=== PATIENT | female | born 1980 | race Caucasian/White ===

== ENCOUNTER 2023-05-20 12:20 | Emergency (ER) | payer MEDICAID, SELFPAY ==
[2023-05-20 12:28] VITALS: BP 128/79; PULSE 87; RESP 15; TEMP 36.6; O2SAT 99; BMI 39.9
--- NOTE | 2023-05-20 12:29 | XR_ITS ---
WS: [id number] Left knee, 4 views, 05/20/2023 Clinical Data: left knee fall injury with pain Comparison: None. Findings: No fractures or dislocations are seen. There is medial joint compartment narrowing with spurring of t he medial femoral condyle and medial tibial plateau. There are calcifications at adjacent to the late ral tibial plateau which are probably within the lateral collateral ligament. There is spurring of th e lateral femoral condyle. There is spurring of the posterior patella. The patella is intact. The sof t tissues are unremarkable. XR/XR knee LT 3V* [id number] Impression: 1. Negative for fracture or dislocation. 2. Minimal osteoarthritis of all the compartments of the left knee. Kellgren-Delio Classification: grade 2 (minimal): definite osteophytes and p ossible joint space narrowing
--- NOTE | 2023-05-20 14:16 | ED_ITS ---
HPI - Extremity Problem General: Chief complaint: Extremity Injury, Lower Stated complaint: fall/inj LT knee Time Seen by Provider: 05/20/23 12:33 History of Present Illness: Patient is a 42-year-old female comes to the ED with left knee pain. Patient says she has some chronic right knee issues and uses a cane to help with ambulation. Today before coming to the ED she was walking and states that she had a twisting type injury to her left knee. She described that her upper part of her body was going [address] and her left lower leg was going in a different direction. She endorses now having 9 out of 10 pain in her left knee. She states that her knee feels unstable. Pain worsens with weightbearing and flexion of left knee. Denies any other injuries. Associated symptoms: Deny chest pain, fever(s) or rash Review of Systems Const: Denies: fever(s), chills or fatigue Eyes: Denies: change in vision or eye discomfort ENMT: Denies: throat pain, odynophagia, nasal discharge or nasal congestion Card: Denies: chest pain, palpitations, edema, swelling of feet/ankles, dyspnea on exertion or orthopnea Resp: Denies: dyspnea, productive cough or non-productive cough GI: Denies: abdominal pain, nausea, vomiting, diarrhea, constipation or hematochezia : Denies: flank pain, dysuria or hematuria Musc: Reports: extremity pain (Left knee), extremity swelling (Left knee) and limited range of motion (Left knee); Denies: neck pain or back pain Skin/Breast: Denies: rash or new lesions Neuro: Denies: headache(s), numbness in extremities or weakness in extremities PFS ED PFSH: Medical History (Updated 05/21/23 @ 09:39 by MYLES Rae) No pertinent family history Surgical History (Updated 05/21/23 @ 09:39 by MYLES Rae) No pertinent past surgical history Physical Exam Const: COMMON NORMALS: no acute distress, patient oriented x3 and alert HENMT: COMMON NORMALS: normocephalic HEAD & SCALP: normocephalic MOUTH: Normal oral and palatal mucosa present THROAT: posterior oropharynx normal and uvula midline Neck/C-Spine: COMMON NORMALS: supple GENERAL: Yes normal visual inspection Resp: COMMON NORMALS: normal respiratory effort, No retractions, No use of accessory muscles and clear to auscultation bilaterally AUSCULTATION: clear to auscultation bilaterally Cardio: COMMON NORMALS: regular rate, regular rhythm, S1 normal heart sound present, S2 normal heart sound present, No gallops present (Cardio), No clicks present (Cardio), No murmurs present (Cardio) and Peripheral pulses 2+ throughout RATE: regular rate RHYTHM: regular rhythm HEART SOUNDS: S1 normal heart sound present and S2 normal heart sound present PERIPHERAL PULSES: Peripheral pulses 2+ throughout GI: COMMON NORMALS: Normal to inspection, nondistended, normoactive bowel sounds present, Soft to palpation, non-tender and no masses PALPATION: Yes Soft to palpation : COMMON NORMALS: Yes no CVA tenderness BLADDER/KIDNEY EXAM: Yes no CVA tenderness Back/Pelvis: COMMON NORMALS: no CVA tenderness Extremity: NARRATIVE EXTREMITY EXAM: Left knee?no visible deformity noted. Mild swelling seen. Tenderness over patellar region of knee. Limited range of motion?flexion of the knee due to pain. Neurovascular intact distally. GENERAL: Yes normal exam except as noted Neuro: COMMON NORMALS: patient oriented x3 SENSORIUM/ORIENTATION: Yes alert GAIT: Yes Normal gait present Skin: GENERAL SKIN EXAM: dry skin Course Vital Signs: Vital signs: Vital Signs Temperature 97.9 F 05/20/23 14:50 Pulse Rate 87 05/20/23 14:50 Respiratory Rate 15 05/20/23 14:50 Blood Pressure 128/79 05/20/23 14:50 Pulse Oximetry 99 05/20/23 14:50 Oxygen Delivery Me thod Room Air 05/20/23 12:28 MDM - Extremity (Nontraumatic) Medical Decision Making Patient is a 42-year-old female comes to the ED with left knee pain. Patient says she has some chronic right knee issues and uses a cane to help with ambulation. Today before coming to the ED she was walking and states that she had a twisting type injury to her left knee. She described that her upper part of her body was going [address] and her left lower leg was going in a different direction. She endorses now having 9 out of 10 pain in her left knee. She states that her knee feels unstable. Pain worsens with weightbearing and flexion of left knee. Denies any other injuries. Left knee?no visible deformity noted. Mild swelling seen. Tenderness over patellar region of knee. Limited range of motion?flexion of the knee due to pain. Neurovascular intact distally. X-ray of left knee showed no acute fractures or dislocations. There is minimal osteoarthritis of all compartments of the left knee. Patient was diagnosed with left knee pain and was stable for discharge home. I placed an order with case management for patient be referred to Ortho for follow-up. Patient was put in a knee immobilizer and discharged home with crutches. Return to ED precautions given. Patient understood and agreed with plan. Lab Data Radiology Impressions Knee X-Ray 05/20/23 12:29 Impression: 1. Negative for fracture or dislocation. 2. Minimal osteoarthritis of all the compartments of the left knee. Kellgren-Delio Classification: grade 2 (minimal): definite osteophytes and possible joint space narrowing Discharge Plan Discharge Patient Disposition: Home Clinical Impression: Knee pain, left Qualifiers: Chronicity: acute Qualified Code(s): M25.562 - Pain in left knee Condition: Stable Prescriptions: New ibuprofen 800 mg tablet 800 mg PO Q8H PRN (Reason: pain) Qty: 30 0RF No Action fluticasone propionate 50 mcg/actuation spray,suspension 2 spray intranasal DAILY PRN (Reason: allergy symptoms) Qty: 16 0RF Rx Instructions: administer into each nostril azithromycin 250 mg tablet See Rx Instructions PO .COMPLEX Qty: 6 0RF Rx Instructions: take 500 mg today (day 1), then 250 mg for 4 days (days 2-5) PO promethazine-DM 6.25-15 mg/5 mL syrup 10 ml PO Q6H PRN (Reason: cough) Qty: 118 0RF Discharge Orders: Discharge ED (Routine); Ordered 05/20/23 Ordered By: Andrews Campos Referrals: Levon Hoffman MD [Primary Care Provider] - Discharge Diet: Regular Discharge Activity: Limit activity as instructed and Use walker/crutches as instructed Patient Instructions: Knee Sprain (ED), Knee Pain (ED) Activity Restrictions/Additional Instructions: Follow-up with medical provider as directed. Case management should be contacted in the next several days to set up an appointment with Ortho for follow-up on knee pain. Wear knee immobilizer and limit weightbearing for the next 2 to 3 days and use crutches to help with ambulation. You can slowly advance some weightbearing on the left leg as tolerated. Rest, ice and elevate left knee. Take medications as prescribed. Return to the ER or your medical provider if condition worsens. Please read and understand discharge instructions. Thank you for choosing [facility] for your healthcare needs today. Please realize this is an emergency room and that we are providing you with a medical screening exam and this may not be complete and all inclusive of all the testing and or work up that you may need to determine your ailment or severity of your illness. It is very important that you follow up as instructed or that you return to the Emergency Department should you have concerns or if your condition changes or worsens in any way. Coding Level of Care Code ED Certified Physician Assistant for Alex Stoner
[2023-05-20] MEDS: HYDROcodone-acetaminophen 7.5-325 mg Tablet 1 TAB PO (14:35)
[2023-05-20] MEDS: ketorolac 60 mg/2 mL INJ IM (14:35)
[2023-05-20 14:50] VITALS: BP 128/79; PULSE 87; RESP 15; TEMP 36.6; O2SAT 99
--- NOTE | 2023-05-23 08:16 | DCPLANNER ---
Addendum entered by Steph Leal 06/17/23 10:50: Patient did attend appointment Addendum entered by Steph Leal 05/25/23 14:14: Patient has a follow up appointment scheduled for Thursday, June 15, 2023 at 11:[address] Moyer at ortho. Original Note: manager salt had message to schedule a follow up appointment for patient with ortho. manager salt sent patients information to the front office staff at ortho. Patients information will be printed and reviewed. Clinic will call patient with appointment information.
== END 2023-05-20 15:01 | disposition home or self-care (01) ==
PROVIDERS: Emergency Provider Physician Assistant; PCP Family Medicine
DX: M25.562 Pain in left knee (principal); M17.12 Unilateral primary osteoarthritis, left knee
CPT/HCPCS: 29530; 73562; 96372; 99283; E0114; J1885

== ENCOUNTER → 2023-06-15 10:47 | Outpatient (BNVA) | payer MEDICAID, SELFPAY | PROVIDERS: PCP Family Medicine; Referring Provider Dermatology; Visit Provider Specialist | DX: M25.561 Pain in right knee (principal); M25.562 Pain in left knee; G89.29 Other chronic pain; M17.12 Unilateral primary osteoarthritis, left knee | CPT/HCPCS: 73560; 73565 ==

== ENCOUNTER 2023-07-08 13:35 | Outpatient (CLI) | payer MEDICAID, SELFPAY ==
--- NOTE | 2023-07-08 13:45 | MR_ITS ---
WS: [id number] MRI LEFT KNEE NONCONTRAST TECHNIQUE: Axial PD, coronal PD fat sat, coronal PD, sagittal PD, and sagittal PD fat-sat images obta ined. CLINICAL INFORMATION: left knee pain COMPARISON: None. FINDINGS: Distal quadriceps and patella tendons are intact. Hypertrophic changes along the joint line. Hypertro phic patella. Normal ACL and PCL. Tiny suprapatellar effusion. Moderate degenerative narrowing patell ofemoral articulation. Mild to moderate narrowing medial and lateral joint compartments. Tear involving the anterior horn lateral meniscus extending to the meniscal root. Peripheral extrusio n of the lateral meniscus. Normal medial meniscus. Medial and lateral collateral ligaments appear int act. Normal popliteus. Normal fibula head. Advanced chondromalacia patella advanced for a patient thi s age. Lateral subluxation of the patella within the trochlear groove. Recommend correlation for woods llar instability. Medial and lateral patellar retinaculum appear intact. IMPRESSION: 1. ACL and PCL appear intact. 2. Tear involving the anterior horn lateral meniscus extending to the articular surface with narrowi ng of the lateral joint compartment. Peripheral extrusion of the lateral meniscus. 3. Medial and lateral collateral ligaments appear intact. 4. Advanced chondromalacia patella with slight lateral subluxation and hypertrophic changes. Recomme nd correlation for patellar instability. 5. Small suprapatellar effusion. 6. No other acute findings. Outbridge grading: grade IV: full-thickness cartilage loss with underlying bone reactive changes
== END 2023-07-08 13:36 | disposition home or self-care (01) ==
PROVIDERS: PCP Family Medicine; Visit Provider Specialist
DX: M17.12 Unilateral primary osteoarthritis, left knee (principal); S83.282A Other tear of lateral meniscus, current injury, left knee, initial encounter; X58.XXXA Exposure to other specified factors, initial encounter; M22.42 Chondromalacia patellae, left knee; M25.462 Effusion, left knee
CPT/HCPCS: 73721

== ENCOUNTER → 2023-09-23 08:09 | Day surgery (SDC) | payer MEDICAID, SELFPAY ==
[2023-09-23] VITALS (8 sets, daily range): BP systolic 122–152; BP diastolic 71–103; PULSE 75–88; RESP 14–18; TEMP 35.8–36.3; O2SAT 94–99; BMI 38.7
--- NOTE | 2023-09-23 08:30 | W.PM.OPSUD ---
Surgery/Procedure H&P Update DATE OF PROCEDURE: September 23, 2023 DATE H&P PERFORMED: 09/13/23 H&P UPDATE INFORMATION: I have reviewed H&P completed within last 30 days, I have examined patient prior to procedure, No changes to prior documentation and H&P is in [facility] EMR on date indicated PLANNED PROCEDURE: Operation Date: 09/23/23 09:50 Proposed Procedures p Knee Arthroscopy Knee Arthroscopy w/ Lateral Menisectomy: meniscectomy and debridement(Left) - Priscilla Moyer MD Related Problem List Diagnoses (1) Primary osteoarthritis of left knee: (2) Tear of lateral meniscus of left knee: Qualifiers: Tear current or old: current Encounter type: subsequent encounter Meniscus tear of knee type: peripheral Qualified Code(s): S83.262D - Peripheral tear of lateral meniscus, current injury, left knee, subsequent encounter
[2023-09-23] MEDS: sodium chloride 0.9% 1,000 ML 30 ML IV (08:45)
[2023-09-23] MEDS: CELEcoxib 200 mg Capsule 400 MG PO (08:49)
--- NOTE | 2023-09-23 08:50 | ANES.PREANE2 ---
Pre-Anesthetic Assessment Height/Weight: Height 1.65 m Temp Pulse Resp BP Pulse Ox O2 Del Method 97.3 F L 88 16 152/103 99 Room Air 09/23/23 08:33 09/23/23 08:33 09/23/23 08:33 09/23/23 08:33 09/23/23 08:33 09/23/23 08:35 Operation Date: 09/23/23 09:50 Proposed Procedures p Knee Arthroscopy Knee Arthroscopy w/ Lateral Menisectomy: meniscectomy and debridement(Left) - Priscilla Moyer MD Familial anesthetic complications: None Was Beta Carina taken within 24 hours: N/A Was Clonidine taken within 24 hours: N/A Last intake: Intake Last Liquid Date 09/22/23 Last Liquid Time 19:00 Last Solid Date 09/22/23 Last Solid Time 18:00 Social Tobacco and No alcohol .5 pack(s) per day Exam alert, oriented x 3, clear to auscultation bilaterally and regular rate & rhythm Airway Submandibular: within normal limits Cervical ROM: within normal limits Mallampati: Class II Dentition: full History/ROS No significant history except as noted and No significant complaints Pulmonary None reported CV/HEM None reported None reported Hepatic None reported GI None reported Metabolic Morbid Obesity [facility] [place] [place] None reported Neuropsych Anxiety Anesthetic Plan ASA status: 2 Anesthesia: Anesthesia Evaluation, General and MAC Risk of > 500 ml blood loss (7ml/kg in children): No Medications/Allergies Home Medications Medication Instructions Recorded Confirmed Last Taken Type meloxicam 15 mg tablet 15 mg PO DAILY #30 tabs 06/15/23 09/22/23 09/15/23 Rx HINGED KNEE BRACE #1 ea 07/25/23 09/13/23 Unknown Rx Allergies Allergy/AdvReac Type Severity Reaction Status Date / Time Penicillins Allergy ALGY-Rash Verified 09/22/23 12:25 Current Medications Generic Name Dose Route Start Last Admin Trade Name Freq PRN Reason Stop Dose Admin Sodium Chloride 1,000 mls @ 30 mls/hr 09/23/23 08:15 09/23/23 08:45 Sodium Chloride 0.9% IV 09/24/23 08:14 30 mls/hr .Q24H TERESA Administration PFSH Anesthesia Medical History No pertinent family history Surgical History No pertinent past surgical history Data Anesthesia Cardiac Studies: No Data to Display
[2023-09-23 08:52] LABS: OR HCG Qualitative Urine Negative (Negative)
[2023-09-23] MEDS: clindamycin 600 MG/50 ML PREMIX 100 MG IV (09:01)
[2023-09-23] MEDS: morphine 4 mg/mL SDV 1 mL 8 MG XX (09:58)
[2023-09-23] MEDS: ROPivacaine 0.5% SDV 30 mL 150 MG INJECTION (09:58)
--- NOTE | 2023-09-23 10:44 | P.OP_ITS ---
Operative Report Date of procedure: September 23, 2023 Pre-op diagnosis: Left knee degenerative osteoarthritis and lateral meniscal tear Post-op diagnosis: Left knee degenerative osteoarthritis with medial and lateral meniscal tears Post-op findings: Anterior horn tear of the lateral meniscus and also in rim tearing of the medial meniscus with degenerative osteoarthritis in both the medial and lateral compartments as well as patellofemoral Procedure done: Left knee arthroscopy with partial medial and lateral meniscectomies, debrid ement of osteoarthritis with chondroplasty medial, lateral, and patellofemoral compartments Surgeon: Priscilla Moyer MD [employer] Developer: None Anesthesia: General (Per LMA, ASA 2) Estimated blood loss (mL): 2 Tourniquet time (min): 42 (At 250 mmHg) IV fluids (mL): 800 Urine output (mL): 0 (No Montoya) Complications: None Findings: Near complete loss of the anterior third of the lateral meniscus. Inner rim tearing and degenerative tearing of the medial meniscus. Chondromalacia of the medial femoral condyle and lateral tibial plateau as well as patellofemoral joint Condition: stable Disposition: PACU (Then return to same-day surgery for discharge to home) Brief History: This 42-year-old woman presented to the office complaining of left knee pain. At times, she complained of pain as high as 9 of 10. She had had cortisone injections, and she stated these did not help her. Additionally, she had tried other conservative measures such as anti-inflammatories. She complained of symptoms such as locking, popping, and giving way along with catching of the knee. The patient had an MRI which demonstrated a lateral meniscal tear involving primarily the anterior horn. The patient wished to proceed with arthroscopic intervention and debridement. Risks and complications were discussed with her. Consents were signed and questions were answered in the office. Procedure: Patient was brought to the operating theater and after undergoing adequate general anesthesia per LMA, ASA 2, the patient's left lower extremity was prepped and draped in usual fashion utilizing DuraPrep. A tourniquet was placed high on the leg prior to prepping and draping. The tourniquet was elevated prior to commencement of the surgical procedure to 250 mmHg. Total tourniquet time was 42 minutes. Elevation followed prepping and exsanguination. Prior to commencement of the surgical procedure, a surgical pause was performed. At the time of the surgical pause, we identified the site and side of surgery. We also confirm the patient's identity and appropriate and timely administration of preoperative antibiotics, clindamycin 600 mg. Preoperative surgical markings were also visualized at this time. Standard arthroscopic portals were utilized including superolateral, inferomedial, and inferolateral portals. The examination commenced in the suprapatellar pouch area where the patient was noted to have chondromalacia of the significant degree on the undersurface of the patella, and there was synovitis in this area as well. The arthroscope was then passed in the medial compartment where there was noted to be inner rim tearing involving the midportion of the medial meniscus. There was also significant chondromalacia of the medial femoral condyle. The meniscus was addressed with a combination of the intra-articular shaver and the intra-articular heat wand. The chondromalacia was addressed similarly with the intra-articular shaver and heat wand. In this fashion, a partial medial meniscectomy was accomplished and the meniscus was well balanced. A chondroplasty was performed primarily involving the medial femoral condyle. The arthroscope was then passed across the notch area where anterior cruciate ligament was visualized and found to be intact. The scope was passed into the lateral compartment with the knee in a figure-of- four position. Lateral meniscus was noted to have extensive tearing primarily involving the anterior horn of the lateral meniscus. There also was noted to be significant chondromalacia of the lateral tibial plateau. Once again, a combination of the intra-articular shaver and heat wand was used to perform a lateral meniscectomy as well as a chondroplasty of the lateral tibial plateau. There was near complete loss of the anterior horn of the lateral meniscus, and the transition zone was tapered to transition into the posterior portion of this lateral meniscus. Once lateral meniscus had been thus prepared, it was palpated and found to be intact and not displaceable into the knee joint. The arthroscope was then returned to the patellofemoral joint where a chondroplasty was performed of the undersurface of the patella. This chondroplasty involved use of the intra-articular shaver as well as the heat wand. Once the patella had been addressed, the scope was passed back through the knee compartments to evaluate for other abnormalities. Finding none, attention was directed to closure. The knee was copiously irrigated and suctioned dry. Following this, each portal was closed with a simple suture followed by Dermabond and Tegaderm. Additionally, the knee was injected with 20 mL of half percent ropivacaine and 8 mg of morphine. Additional 10 mL of ropivacaine was placed about the portals. Sterile dressing was placed consisting of the Dermabond, Steri-Strips, OpSite, and sterile soft roll followed by the Guero wrap. Patient was returned to Recovery Room in satisfactory condition where she will be discharged home to follow-up with me in the office as scheduled. There were no complications and no specimens. Related Problem List Diagnoses (1) Tear of medial meniscus of left knee: (2) Tear of lateral meniscus of left knee: (3) Primary osteoarthritis of left knee:
--- NOTE | 2023-09-23 11:08 | PC.NURSE ---
Pain med - patient took one of her home pain meds.
--- NOTE | 2023-09-23 11:30 | ANE.PACU2 ---
Inpatient post-anesthesia follow up: Airway intact: Yes Vital signs: Temperature 96.5 F Pulse Rate 75 Respiratory Rate 16 Blood Pressure 128/76 Pulse Oximetry 97 Oxygen Delivery Me thod Room Air Oxygen Flow Rate Fraction of Inspir ed Oxygen Hydration adequate: Yes Nausea and vomiting: No Pain level: 1 Mental status: Baseline
== END | disposition home or self-care (01) ==
PROVIDERS: Anesthesiology; PCP Family Medicine; Visit Provider Specialist
PROC: (CPT 29870; principal; 2023-09-23 09:40)
DX: M17.12 Unilateral primary osteoarthritis, left knee (principal); S83.282A Other tear of lateral meniscus, current injury, left knee, initial encounter; X58.XXXA Exposure to other specified factors, initial encounter; E66.01 Morbid (severe) obesity due to excess calories; Z68.38 Body mass index [BMI] 38.0-38.9, adult
CPT/HCPCS: 29880; 84703; J0131; J1100; J1170; J2270; J2371; J2405; J2704; J2795; J3490; J7030

== ENCOUNTER → 2023-11-09 10:59 | Outpatient (BNVA) | payer MEDICAID, SELFPAY | PROVIDERS: PCP Family Medicine; Visit Provider Nurse Practitioner | DX: Z98.890 Other specified postprocedural states (principal); M17.12 Unilateral primary osteoarthritis, left knee; S83.262D Peripheral tear of lateral meniscus, current injury, left knee, subsequent encounter; X58.XXXD Exposure to other specified factors, subsequent encounter | CPT/HCPCS: 73560; 73565 ==